=== PATIENT | female | born 1965 | race Caucasian/White ===

== ENCOUNTER 2020-03-13 15:26 | Emergency (ER) | payer OTHER, SELFPAY ==
[2020-03-13] VITALS (36 sets, daily range): BP systolic 80–118; BP diastolic 40–90; PULSE 59–97; RESP 11–23; TEMP 35.9–37.1; O2SAT 90–99
--- NOTE | ~2020-03-13 | CT_ITS ---
EXAMINATION: CT abdomen pelvis wo con EXAM DATE: 03/13/2020 19:36 INDICATION: Large decubitus ulcer, pain.... r/o tracking or osteomyelitis. TECHNIQUE: Spiral CT of the abdomen and pelvis was performed without contrast. Axial, coronal and s agittal images were reviewed. The dose-length product (DLP) for this examination was 711.24 mGy-cm. The exposure was tailored according to patient size (auto mA exposure control), and iterative recons truction (ASIR) was used as additional dose reduction technique. There is no prior study for compari son. FINDINGS: There is large sacral decubitus ulceration, with demineralization of the posterior aspect o f the S4-6 segment, consistent with osteomyelitis. There are some small foci of gas likely introduced through the ulceration. No drainable abscess. There is a 1.6 cm left adrenal gland lesion with small region of macroscopic fat inside, consistent with myelolipoma. The liver, spleen and pancreas are un remarkable. There are cholecystectomy clips. There is no nephrolithiasis or hydronephrosis. The u terus is anteverted and morphologically normal. The bladder is unremarkable. There is no retroperi toneal or pelvic lymphadenopathy. The appendix is normal. There is mild scattered colonic diverticulosis. There is no adjacent inflamm atory change to suggest diverticulitis. The stomach and small bowel are unremarkable. There is expec fabienne amount of colonic stool. No free intraperitoneal gas. The heart is normal in size. There are no pericardial or pleural effusions. The lung bases are unremarkable. There is moderate thoracolu mbar dextroscoliosis, with multiple mild to moderate thoracolumbar compression fractures which appear chronic. There is left femoral neck, shaft hardware. IMPRESSION: 1. Distal sacral osteomyelitis. Overlying decubitus. 2. Left adrenal myelolipoma. 3. Mild scattered colonic diverticulosis. Reviewed, dictated and finalized at location A.
--- NOTE | 2020-03-13 15:48 | PC.NURSE ---
patient here for evaluation of coccyx wound. see triage notes. alert. oriented to baseline. SL inserted. labs drawn. assessments documented. patient on night monitor. side rails up x 2. call light in reach. waiting for further orders from provider.
--- NOTE | 2020-03-13 16:18 | PC.NURSE ---
provider in room. patient turned for provider to see wound. assessments updated.
--- NOTE | 2020-03-13 16:36 | ED.WOUNDLAC ---
HPI - Wound/Laceration General Chief Complaint: Wound/Laceration Stated Complaint: WOUND Time Seen by Provider: 03/13/20 16:10 Source: patient (Limited information), EMS, RN notes reviewed and other (care home records) Mode of arrival: EMS Limitations: altered mental status History of Present Illness HPI narrative: Patient is a 54-year-old female who presents by EMS from group home with decubitus to sacral area. Limited information derived from EMS, group home record. Patient has developmental disabilities and is a poor historian. Patient is responsive to verbal stimuli and able to relate pain. Patient also has significant mental health history. Large decubitus to sacral area with dressing in place from group home. Per EMS, unsure how long patient has had decubitus. Related Data Home Medications Medication Instructions Recorded Confirmed acetaminophen See Rx Instructions .ROUTE 03/13/20 .COMPLEX PRN aspirin 81 mg PO DAILY 03/13/20 calcium carbonate-vitamin D3 BID 03/13/20 cefazolin 2 IV BID 03/13/20 cholecalciferol (vitamin D3) MONTHLY 03/13/20 collagenase clostridium histo. 1 applic TOPICAL HS 03/13/20 [Santyl] divalproex PO HS 03/13/20 divalproex PO TID 03/13/20 donepezil 10 mg PO HS 03/13/20 duloxetine 60 mg PO DAILY 03/13/20 gabapentin 300 mg PO BID 03/13/20 hydrocodone-acetaminophen [[place]] 03/13/20 ibuprofen 400 mg PO Q6H PRN 03/13/20 levothyroxine 25 mcg PO DAILY 03/13/20 metformin 850 mg PO BID 03/13/20 khrdbpyfxhxk-ztr-vtfl-FA-vit K tablet PO DAILY 03/13/20 [Adults Multivitamin] pravastatin 20 mg PO HS 03/13/20 quetiapine 12.5 mg PO HS 03/13/20 risperidone 2 mg PO DAILY 03/13/20 risperidone 3 mg PO HS 03/13/20 sennosides [senna] 17.2 mg PO HS 03/13/20 tramadol 50 mg PO Q6H PRN 03/13/20 Allergies Allergy/AdvReac Type Severity Reaction Status Date / Time No Known Allergies Allergy Verified 03/13/20 15:39 Review of Systems Review of Systems: Narrative: CONSTITUTIONAL: No fever, chills, or sweats. EYES: No visual changes, redness, or discharge. ENT: No rhinorrhea, congestion, sore throat, or otalgia. CARDIOVASCULAR: No chest pain, palpitations, or edema. RESPIRATORY: No cough or dyspnea. GASTROINTESTINAL: No abdominal pain, nausea, vomiting, or diarrhea. GENITOURINARY: Incontinent SKIN: Decubitus to sacral area MUSCULOSKELETAL: No back pain, joint pain, or myalgia. NEUROLOGIC:No headache, numbness, dizziness, or weakness. PSYCHIATRIC: History of anxiety and depression, significant mental health history. [facility] Past Medical History Medical History (Updated 03/14/20 @ 00:00 by Dulce Espinoza) Anxiety Bipolar disorder Borderline personality disorder Cerebral palsy Dementia in other diseases classified elsewhere with behavioral disturbance GERD without esophagitis Hyperlipidemia Hypothyroidism Intellectual disability Major depressive disorder Paraplegia Polyneuropathy Pressure ulcer of sacral region Scoliosis Type 2 diabetes mellitus Vitamin deficiency Surgical History Surgical History (Updated 03/13/20 @ 16:43 by YAMIL Adams) Surgical history unknown Social History Social History (Updated 03/13/20 @ 16:43 by YAMIL Adams) Smoking status: Never smoker Alcohol intake: never Substance use: never Living arrangements: group home Exam Narrative: Exam Narrative: GENERAL: well-nourished, and in no acute distress. HEAD: Normocephalic, atraumatic. EYES: No redness or drainage. Conjunctiva are normal. ENT: Mucous membranes pink and moist. CHEST: No respiratory distress. Clear to auscultation. HEART: Regular rate and rhythm. No murmur appreciated. Normal peripheral pulses. GI: Soft, nontender without rebound, or guarding. No distention. Bowel sounds normal in all quadrants. MUSCULOSKELETAL: No bony tenderness. EXTREMITIES: Multiple contractures, no edema. SKIN: 6 x 8 cm stage III decubitus ulcer to sacral area.
[2020-03-13 16:38] LABS: Basophils Percent Auto 0.1 % (0.2-1.2); Eosinophils Percent Auto 0.3 % (0-4.4); Hemoglobin 12.5 g/dL (12.0-15.0); Immature Granulocyte Absolute 0.06 K/mm3 (0.00-0.031); Immature Granulocyte Percent A 0.6 % (0-0.5); Lymphocytes Absolute Auto 2.52 K/mm3 (0.9-3.2); Lymphocytes Percent Auto 23.2 % (18.3-44.2); Mean Corpuscular HGB Conc 31.3 g/dl (32-36); Mean Corpuscular Volume 92.8 fl (80-100); Mean Platelet Volume 8.3 fl (7.4-10.4); Monocytes Absolute Auto 1.5 K/mm3 (0.1-0.6); Monocytes Percent Auto 13.4 % (2.6-8.5); Neutrophils Absolute Auto 6.8 K/mm3 (1.3-6.7); Neutrophils Percent Auto 62.4 % (45.5-73.1); Platelet Count Result 217 k/mm3 (150-375); Red Blood Count 4.31 M/mm3 (4.2-5.4); Red Cell Distribution Width 13.7 % (11.5-14.5); White Blood Count 10.9 K/mm3 (4.5-10.0)
[2020-03-13 16:49] LABS: Alanine Aminotransferase 25 U/L (4-35); Albumin Level 3.5 g/dL (3.5-5.1); Alkaline Phosphatase 109 U/L (38-126); Anion Gap 7 mmol/L (8-16); Aspartate Amino Transferase 29 U/L (14-36); Bilirubin,Total 0.6 mg/dL (0.2-1.3); Blood Urea Nitrogen 14 mg/dL (7-17); Calcium 9.9 mg/dL (8.4-10.2); Carbon Dioxide 37 mmol/L (22-30); Chloride 93 mmol/L (98-107); Estimated CRCL calculation 101 ml/min; Estimated Glomerular Filt Rate > 60; Glucose 86 mg/dL (65-105); Potassium 3.5 mmol/L (3.4-5.0); Sodium 137 mmol/L (137-145)
--- NOTE | 2020-03-13 17:10 | PC.NURSE ---
patient with some low BP readings. cuff has been moved and repositioned. smaller cuff placed now. patient repositioned. left foot elevated on a pillow per patient's request. does not want to change sides right now. denies needs. call light in reach.
[2020-03-13 17:48] LABS: Lactic Acid Reflex 1.1 mmol/L (0.7-2.1)
--- NOTE | 2020-03-13 18:31 | PC.NURSE ---
patient resting on stretcher. waiting for CT results. planning for admission upstairs.
--- NOTE | 2020-03-13 19:52 | PC.NURSE ---
noted 6x8cm decub noted to cocyx area, noted black tissue. RUNNER OUT at bedside
--- NOTE | 2020-03-13 21:20 | PC.NURSE ---
called [facility] at [phone] to request transport. Given 20-30 minute ETA. [facility] here at [phone]
== END 2020-03-13 21:20 ==
PROVIDERS: Emergency Provider Nurse Practitioner
DX: L89.153 Pressure ulcer of sacral region, stage 3 (principal); M46.28 Osteomyelitis of vertebra, sacral and sacrococcygeal region; E11.69 Type 2 diabetes mellitus with other specified complication; F41.9 Anxiety disorder, unspecified; F60.3 Borderline personality disorder; G80.9 Cerebral palsy, unspecified; K21.9 Gastro-esophageal reflux disease without esophagitis; E78.5 Hyperlipidemia, unspecified; E03.9 Hypothyroidism, unspecified; F79 Unspecified intellectual disabilities; E56.9 Vitamin deficiency, unspecified; E11.42 Type 2 diabetes mellitus with diabetic polyneuropathy; G82.20 Paraplegia, unspecified; F03.91 Unspecified dementia, unspecified severity, with behavioral disturbance; K57.90 Diverticulosis of intestine, part unspecified, without perforation or abscess without bleeding; D17.79 Benign lipomatous neoplasm of other sites; Z79.82 Long term (current) use of aspirin; Z79.84 Long term (current) use of oral hypoglycemic drugs
CPT/HCPCS: 36415; 74150; 80053; 83605; 85025; 99284

== ENCOUNTER 2020-03-21 09:46 | Outpatient (RCR) | payer OTHER, SELFPAY ==
[2020-03-21 10:05] VITALS: BMI 29.4
--- NOTE | 2020-04-01 12:38 | PCWOUND ---
WOCN NOTE patient did not show up for appointment, [facility], they state they have wound care team taking care of her at the facility and want to continue to follow her themselves.
--- NOTE | 2020-04-03 06:57 | P.PNWOUND_ITS ---
Wound Care Note Date/Time: 03/21/20 08:57 Patient is a 54-year-old woman who resides in a intermediate. She is bed ridden and was transferred to the emergency room at [facility] on 03/13/2020. I was called about this from the emergency room provider. She had a large sacral decubitus with foul odor and some necrotic tissue. She had not have any signs of systemic infection or localized infection. She was started on Dakin's solution wet-to-dry dressings twice a day at the intermediate. She is seen now in the wound clinic for evaluation. She was brought here by ambulance and was taken care of while on the transfer stretcher. She is not able to really give much of a history. Assessment and Plan Assessment and plan (1) Pressure ulcer of sacral region: Code(s): L89.159 - Pressure ulcer of sacral region, unspecified stage Status: Chronic Assessment and Plan: Large sacral pressure ulcer but no signs of systemic or localized infection. Will debride here in the wound clinic of necrotic tissue. Continue Dakin solution dressing changes twice a day. Follow-up in the wound clinic in 2 weeks. (2) Type 2 diabetes mellitus: Code(s): E11.9 - Type 2 diabetes mellitus without complications Status: Chronic (3) Dementia in other diseases classified elsewhere with behavioral disturbance: Code(s): F02.81 - Dementia in other diseases classified elsewhere with behavioral distur bance Status: Chronic (4) Bipolar disorder: Code(s): F31.9 - Bipolar disorder, unspecified Status: Chronic Review of Systems Review of Systems: ROS unobtainable: Yes unobtainable due to mental status Exam Const: General: comfortable, no acute distress, well developed, alert, awake, anxious and confusion Nutritional Appearance: well nourished Orientation/consciousness: confusion Back/Spine/Pelvis: Back: No erythema, No warmth, No sacral edema, back tenderness ( Stage IV sacral pressure ulcer, no signs infection) and other ( Foul smelling, large sacral wound with necrotic tissue and undermining. ) Other: sacral wound 6 x 8 cm and approximately 1-1/2 to 2 cm deep. Undermining particularly on the left side of the wound. See procedure note for debridement details.
--- NOTE | 2020-04-03 07:04 | PM.PROC ---
Procedure Note - Detailed Date of procedure: 04/03/20 Pre-op diagnosis: L89.159 pressure ulcer of sacral region Stage IV pressure ulcer of sacrum with necrotic tissue Post-op diagnosis: same Procedure performed: excisional debridement skin subcutaneous and muscle of 4 cm x 2 cm by 1 cm area of sacral ulcer. Description of procedure: The patient was placed in left lateral decubitus position on the transport cart. Although she was anxious, she tolerated the procedure well. Only necrotic tissue was excisionally debrided. Sharp debridement of necrotic skin subcutaneous and some muscle was carried out particularly on the undermined left side of the wound. There was minimal bleeding which was controlled with silver nitrate cautery. At least 90 are 95% of the necrotic tissue was able to be excised. Wound was redressed with gauze and Dakin solution. Anesthesia: none Surgeon: Flynn Morgan MD Estimated blood loss (mL): 1 Drains: No Packing: Yes ( Gauze and Dakin solution) Pathology: none sent Complications: None Condition: stable Disposition: no change Findings: stage IV sacral decubitus ulcer with undermining and necrotic tissue. Debrided as noted above.
== END 2020-05-01 13:24 | disposition home or self-care (01) ==
LOC: ANHWOC 09:46
PROVIDERS: Visit Provider Surgery
DX: L89.159 Pressure ulcer of sacral region, unspecified stage (principal)
CPT/HCPCS: 99212; A9270; G0463